=== PATIENT | male | born 1995 | race Caucasian/White ===

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

== ENCOUNTER 2017-04-17 13:10 | Emergency (ER) | payer SELFPAY ==
[~2017-04-17] VITALS: Ht 180.3 cm; Wt 45.4 kg
[2017-04-17 14:14] LABS: HEMATOCRIT 39.8 % (42.0-52.0); HEMOGLOBIN 14.1 g/dl (14.0-18.0); LYMPH # 0.9 10*3/uL (1.3-4.4); LYMPH % 24.4 % (27.0-41.0); MEAN CORPUSCULAR HGB 30.1 pg (27.0-31.0); MEAN CORPUSCULAR HGB CONC 35.4 g/dl (33.0-37.0); MEAN PLATELET VOLUME 12.1 fl (9.6-12.3); MONO # 0.5 10*3/uL (0.1-1.0); MONO % 13.5 % (3.0-9.0); NEUT # 2.4 10*3/uL (2.3-7.9); NEUT % 61.8 % (47.0-73.0); PLATELET COUNT AUTOMATED 84 10*3/uL (130-400); RED BLOOD COUNT 4.68 10*6/uL (4.50-5.90); RED CELL DISTRI WIDTH 12.4 % (0-14.5); WHITE BLOOD COUNT 3.9 10*3/uL (4.8-10.8)
[2017-04-17 14:40] LABS: ALBUMIN 3.5 gm/dl (3.1-4.5); ALKALINE PHOSPHATASE 60 U/L (45-117); BUN 9 mg/dl (7-24); CHLORIDE 99 mmol/L (98-107); CREATININE 0.87 mg/dL (0.70-1.30); POTASSIUM 3.7 mmol/L (3.5-5.1); SGOT/AST 19 IU/L (3-35); SGPT/ALT 15 U/L (12-78); SODIUM 135 mmol/L (136-145); TOTAL PROTEIN 6.5 gm/dL (6.4-8.2)
[2017-04-17] MEDS ORDERED: OMNICEF300 MG PO (15:13)
[2017-04-17] MEDS ORDERED: ZOFRAN ODT4 MG SL (15:13)
== END 2017-04-17 15:21 | disposition home or self-care (01) ==
LOC: ED 13:10
PROVIDERS: Nurse Practitioner Family
DX: H65.93 Unspecified nonsuppurative otitis media, bilateral (principal); B34.9 Viral infection, unspecified; R06.02 Shortness of breath; F17.200 Nicotine dependence, unspecified, uncomplicated

== ENCOUNTER 2018-02-07 22:44 | Emergency (ER) | payer OTHER ==
[~2018-02-07] VITALS: Ht 175.2 cm; Wt 53.5 kg
[~2018-02-07 22:44] MED LIST changes: +OMNICEF300 MG PO; +ZOFRAN ODT4 MG SL
== END 2018-02-08 00:35 | disposition left against medical advice (07) ==
LOC: ED 22:44
DX: M25.511 Pain in right shoulder (principal); F17.200 Nicotine dependence, unspecified, uncomplicated

== ENCOUNTER 2018-06-25 01:44 | Emergency (ER) | payer OTHER ==
[~2018-06-25] VITALS: Ht 175.2 cm; Wt 53.5 kg
[~2018-06-25 01:44] MED LIST changes: +AMOXICILLIN500 M2 PO
[2018-07-14] MEDS ORDERED: BACTROBAN CREAM15 GM PO (13:51)
[2018-07-14] MEDS ORDERED: CEPHALEXIN500 M1 PO (13:51)
== END 2018-06-25 02:17 | disposition home or self-care (01) ==
LOC: ED 01:44
DX: H10.11 Acute atopic conjunctivitis, right eye (principal); Z79.2 Long term (current) use of antibiotics

== ENCOUNTER 2018-12-04 18:22 | Emergency (ER) | payer OTHER ==
[~2018-12-04] VITALS: Ht 175.2 cm; Wt 52.2 kg
[~2018-12-04 18:22] MED LIST changes: +BACTROBAN CREAM15 GM PO; +CEPHALEXIN500 M1 PO
[2018-12-04] MEDS ORDERED: PROAIR HFA8.5 GM INH (20:03)
[2018-12-04] MEDS ORDERED: ANAPROX DS550 MG PO (20:03)
== END 2018-12-04 20:14 | disposition home or self-care (01) ==
LOC: ED 18:22
DX: S20.212A Contusion of left front wall of thorax, initial encounter (principal); F17.200 Nicotine dependence, unspecified, uncomplicated; X58.XXXA Exposure to other specified factors, initial encounter; Y93.72 Activity, wrestling; Y92.89 Other specified places as the place of occurrence of the external cause; Y99.8 Other external cause status

== ENCOUNTER 2020-08-26 17:06 | Emergency (ER) | payer OTHER ==
[~2020-08-26] VITALS: Wt 54.4 kg
[~2020-08-26 17:06] MED LIST changes: +ANAPROX DS550 MG PO; +PROAIR HFA8.5 GM INH
[2020-08-26 17:42] LABS: BILIRUBIN Negative (Negative); BLOOD Negative (Negative); CLARITY Clear (Clear); COLOR Dark Yellow (Yellow); GLUCOSE Negative (Negative); KETONE Negative (Negative); LEUKO ESTERASE Negative (Negative); NITRITE Negative (Negative); PH 8.5 (4.5-8.0); SPECIFIC GRAVITY 1.025 (1.001-1.030)
[2020-08-26 17:54] LABS: EPITHELIAL CELLS 0-2; RBC 0-2 rbc/hpf (0-2); WBC 0-2 wbc/hpf (0-5)
[2020-08-26 18:05] LABS: BASO % 0.4 % (0.0-1.0); EOS # 0.1 10*3/uL (0.0-0.4); EOS % 1.4 % (1.0-4.0); HEMATOCRIT 39.4 % (42.0-52.0); LYMPH # 1.5 10*3/uL (1.3-4.4); LYMPH % 19.3 % (27.0-41.0); MEAN CELL VOLUME 87.4 fl (80.0-94.0); MEAN CORPUSCULAR HGB 29.3 pg (27.0-31.0); MEAN CORPUSCULAR HGB CONC 33.5 g/dl (33.0-37.0); MEAN PLATELET VOLUME 10.6 fl (9.6-12.3); MONO # 0.6 10*3/uL (0.1-1.0); MONO % 7.3 % (3.0-9.0); NEUT # 5.7 10*3/uL (2.3-7.9); NEUT % 71.3 % (47.0-73.0); PLATELET COUNT AUTOMATED 208 10*3/uL (130-400); RED BLOOD COUNT 4.51 10*6/uL (4.50-5.90); RED CELL DISTRI WIDTH 12.6 % (0-14.5)
[2020-08-26 18:26] LABS: ALBUMIN 3.8 gm/dl (3.1-4.5); ALKALINE PHOSPHATASE 102 U/L (45-117); BUN 13 mg/dl (7-24); CHLORIDE 108 mmol/L (98-107); CREATININE 1.04 mg/dL (0.70-1.30); POTASSIUM 3.7 mmol/L (3.5-5.1); SGOT/AST 15 IU/L (3-35); SGPT/ALT 26 U/L (12-78); SODIUM 142 mmol/L (136-145); TOTAL PROTEIN 6.8 gm/dL (6.4-8.2)
[2020-08-26] MEDS ORDERED: SEPTDS PO (18:55)
== END 2020-08-26 19:11 | disposition home or self-care (01) ==
LOC: ED 17:06
PROVIDERS: Emergency Medicine; Nurse Practitioner
DX: S39.013A Strain of muscle, fascia and tendon of pelvis, initial encounter (principal); N39.0 Urinary tract infection, site not specified; Z79.899 Other long term (current) drug therapy; X58.XXXA Exposure to other specified factors, initial encounter; Y93.89 Activity, other specified; Y92.89 Other specified places as the place of occurrence of the external cause; Y99.8 Other external cause status

== ENCOUNTER 2024-04-21 17:27 | Emergency (ER) | payer OTHER ==
[~2024-04-21] VITALS: Ht 177.8 cm; Wt 54.4 kg
[~2024-04-21 17:27] MED LIST changes: +SEPTDS PO
[2024-04-21] MEDS ORDERED: Amoxicillin/Clavulanate Pota 875 MG TAB PO ONE ×2 (19:25)
[2024-04-21] MEDS ORDERED: Acetaminophen/Hydrocodone HP 10/325 PO ONE (19:25)
[2024-04-21] MEDS ORDERED: MELOXICAM10 MG PO (19:28)
[2024-04-21] MEDS ORDERED: AMOX-CLAV 875-1 EACH PO (19:28)
== END 2024-04-21 19:37 | disposition home or self-care (01) ==
LOC: ED 17:27
DX: K04.7 Periapical abscess without sinus (principal); R22.0 Localized swelling, mass and lump, head; J45.909 Unspecified asthma, uncomplicated; F17.210 Nicotine dependence, cigarettes, uncomplicated